=== PATIENT | male | born 1965 | race Caucasian/White ===

== ENCOUNTER 2023-05-21 06:48 | Observation (INO) | payer BC ==
[2023-05-19 14:58] VITALS: BMI 29.7
[2023-05-21] MEDS ORDERED: EPINEPHrine 1 MG/ML VIAL ONE (09:12)
[2023-05-21] MEDS ORDERED: Lidocaine 1% (PF) 30 ML VIAL ONE (09:13)
[2023-05-21] MEDS ORDERED: fentaNYL PF 100 MCG/2 ML SYRINGE ONE ×2 (09:22→12:30)
[2023-05-21] MEDS ORDERED: PROPOFOL 200 MG/20 ML VIAL ONE (09:30)
[2023-05-21] MEDS ORDERED: ePHEDrine Sulfate 50 MG/10 ML VIAL ONE (09:30)
[2023-05-21] MEDS ORDERED: PHENYLEPHRINE-NS 100 MCG/ML 10 ML SYRINGE ONE (09:30)
[2023-05-21] MEDS ORDERED: Dexamethasone 20 MG/5 ML VIAL ONE (09:30)
[2023-05-21] MEDS ORDERED: Ondansetron PF 4 MG/2 ML Vial ONE (09:30)
[2023-05-21] MEDS ORDERED: Succinylcholine 200 MG/10 ml SYRINGE FS ONE (09:30)
[2023-05-21] MEDS ORDERED: Promethazine HCl 25 MG/ML VIAL IM PRN (11:46)
[2023-05-21] MEDS ORDERED: PACU-Morphine 4MG/ML VIAL SLOW IVP PRN (11:46)
[2023-05-21] MEDS ORDERED: Ondansetron HCl/PF 4 MG/2 ML Vial IVP PRN (11:46)
[2023-05-21] MEDS: Morphine 2 MG/ML VIAL SLOW IVP PRN ×3 (14:28→22:45)
[2023-05-21] MEDS: CEFAZOLIN 2 GM in Sodium Chloride 0.9% 100 ML IVPB SCH ×2 (15:08→21:14)
[2023-05-21] MEDS: Hydrocodone-Acetamin 15 ML UDCUP PO PRN ×2 (15:37→20:33)
[2023-05-21] MEDS: Calcium Carbonate 500 MG TAB PO SCH (17:15)
[2023-05-21 18:11] LABS: Calcium 8.9 mg/dL (7.8-10.44)
[2023-05-21] MEDS: CALCIUM GLUC 1 GM/NS 50 ML 1 GM in Premix 1 BAG IVPB SCH ×2 (19:49→21:14)
[2023-05-21] MEDS: Ondansetron PF 4 MG/2 ML Vial IVP PRN (20:35)
[2023-05-21 23:54] LABS: Calcium 9.5 mg/dL (7.8-10.44)
[2023-05-22] MEDS: Ondansetron PF 4 MG/2 ML Vial IVP PRN (03:48)
[2023-05-22] MEDS: CEFAZOLIN 2 GM in Sodium Chloride 0.9% 100 ML IVPB SCH (05:06)
[2023-05-22 05:49] LABS: Anion Gap 14 mmol/L (10-20); BUN (Urea Nitrogen) 10 mg/dL (8.4-25.7); Calc. Creatinine Clearance 120 mL/min (70-130); Calcium 9.1 mg/dL (7.8-10.44); Carbon Dioxide 29 mmol/L (22-29); Chloride 99 mmol/L (98-107); Estimated GFR 101; Glucose 118 mg/dL (70-105); Potassium 3.7 mmol/L (3.5-5.1); Sodium 138 mmol/L (136-145)
[2023-05-22 08:36] VITALS: BP 121/71; TEMP 98.6
[2023-05-22] MEDS ORDERED: Calcitriol 0.25 MCG CAP PO SCH (09:00)
[2023-05-22] MEDS: Calcium Carbonate 500 MG TAB PO SCH (09:50)
[2023-05-22 10:20] LABS: Calcium 9.1 mg/dL (7.8-10.44)
[2023-05-24] MEDS ORDERED: FLU VACC QS2023-24(6MOS UP)/PF 60 MCG/0.5 ML SYRINGE IM ONE (15:00)
== END 2023-05-22 11:29 | disposition home or self-care (01) ==
LOC: SDC 06:48 → MSONC 13:21
PROVIDERS: ADMIT Otolaryngology Plastic Surgery within the Head & Neck; ATTEND Otolaryngology Plastic Surgery within the Head & Neck
PROC: 0GTH0ZZ Resection of Right Thyroid Gland Lobe, Open Approach (ICD-10-PCS; principal; 2023-05-21)
DX: C73 Malignant neoplasm of thyroid gland (principal); E04.1 Nontoxic single thyroid nodule
CPT/HCPCS: 36415; 82310; 83970; 88307; 88331; 93005; 93010; 94760; C1889; J0171; J0613; J1100; J2001; J2272; J2405; J2704; J3490